=== PATIENT | female | born 1950 | race Caucasian/White ===

== ENCOUNTER 2023-02-10 04:34 | Emergency (ER) | payer MEDICARE ==
[~2023-02-10] VITALS: Ht 172.7 cm; Wt 93.0 kg
[2023-02-10 04:40] VITALS: BP_SYST 195; PULSE 109; RESP 16; TEMP 97.9; O2SAT 99
[2023-02-10] MEDS ORDERED: ASPIRIN 81 MG TAB.CHEW PO ONE (05:00)
[2023-02-10 05:26] LABS: BASOPHILS # (AUTO) 0.1 K/uL (0.0-0.2); BASOPHILS % (AUTO) 1.1 % (0.0-2.0); EOSINOPHILS # (AUTO) 0.1 K/uL (0.0-0.4); EOSINOPHILS % (AUTO) 2.9 % (0.0-4.0); HEMATOCRIT 45.1 % (36-48); HEMOGLOBIN 14.7 g/dL (12.0-16.0); LYMPHOCYTES # (AUTO) 1.5 K/uL (1.0-5.5); LYMPHOCYTES % (AUTO) 31.8 % (20.5-51.5); MEAN CORPUSCULAR HEMOGLOBIN 28 pg (27-31); MEAN CORPUSCULAR HGB CONC 33 % (32-36); MEAN CORPUSCULAR VOLUME 87 fL (79.0-98.0); MONOCYTES # (AUTO) 0.5 K/uL (0.0-1.0); MONOCYTES % (AUTO) 10.7 % (1.7-9.3); NEUTROPHILS # (AUTO) 2.6 K/uL (1.8-7.7); NEUTROPHILS % (AUTO) 53.5 % (40.0-70.0); PLATELET COUNT (AUTO) 218 K/uL (130-430); RED BLOOD CELL COUNT(AUTO) 5.19 MIL/uL (4.2-6.2); RED CELL DISTRIBUTION WIDTH 14.1 % (9.0-15.0); WHITE BLOOD COUNT (AUTO) 4.9 K/uL (4.8-10.8)
[2023-02-10 05:38] LABS: ANION GAP 9 (5-15); CALCIUM 9.3 mg/dL (8.4-11.0); CARBON DIOXIDE 29 mmol/L (23-29); CHLORIDE 101 mmol/L (98-107); CREATININE 0.72 mg/dL (0.55-1.30); GLUCOSE 96 mg/dL (74-106); POTASSIUM 3.5 mmol/L (3.5-5.1); SODIUM SERUM 139 mmol/L (136-145); UREA NITROGEN, BLOOD 17 mg/dL (8-21)
[2023-02-10 05:42] LABS: INR 0.9 (0.8-1.2); PROTHROMBIN TIME 9.7 SECS (9.5-12.5)
[2023-02-10 05:46] LABS: ALANINE AMINOTRANSFERASE 28 U/L (12-78); ALBUMIN 3.7 g/dL (3.4-4.8); ASPARTATE AMINOTRANSFERASE 20 U/L (10-37); TOTAL BILIRUBIN 0.3 mg/dL (0.0-1.0); TOTAL PROTEIN, SERUM 7.1 g/dL (6.4-8.3)
[2023-02-10] MEDS ORDERED: HEPARIN SODIUM,PORCINE 5,000 UNITS/ML VIAL IVP ONE (09:15)
[2023-02-10] MEDS ORDERED: HEPARIN 25,000 UNITS/D5W 250ML 250 ML IV ONE (09:30)
[2023-02-10 09:36] VITALS: BP_SYST 90
[2023-02-10 09:37] VITALS: PULSE 100; RESP 16; TEMP 97.6; O2SAT 96
== END 2023-02-10 14:35 | disposition short-term general hospital (02) ==
LOC: SED 04:34
DX: I24.9 Acute ischemic heart disease, unspecified (principal); R07.9 Chest pain, unspecified; M25.512 Pain in left shoulder; Z88.1 Allergy status to other antibiotic agents; Z79.899 Other long term (current) drug therapy
CPT/HCPCS: 99291; 96365; 96375; 80053; 85025; 85610; 85730; 84484; 36415; 93005; 71045; J1644 ×2